=== PATIENT | female | born 1980 | race African-American/Black ===

== ENCOUNTER 2017-04-19 08:26 | Emergency (ER) | payer MEDICARE, OTHER ==
[~2017-04-19] VITALS: Wt 81.0 kg
[~2017-04-19 08:26] MED LIST: iron PO; klonopin PO
--- NOTE | 2017-04-19 09:16 | ERD ---
ER Documentation Chief Complaint Date/Time DATE: 04/19/17 TIME: 09:14 Chief Complaint COUGH X 1 MONTH WITH SOB HPI 36-year-old female with history of asthma comes emergency department with a cough 1 month. Patient states that she was previously treated with amoxicillin for her cough as well as sinus congestion. She has lower right- sided sinus congestion, with a productive cough with yellow colored sputum. She also reports she has had chest pain on the left anterior side, for approximately 1-1/2 weeks now. She has not had any fevers or chills. She has not had any recent travel, trauma, does not take any oral contraceptive pills, denies leg pain or leg swelling. ROS All systems reviewed and are negative except as per history of present illness. Medications Home Meds Active Scripts Fluconazole* (Diflucan*) 150 Mg Tablet, 150 MG PO ONCE, #1 TAB Prov:AKANKSHA MEYER PA-C 04/19/17 Ibuprofen* (Motrin*) 600 Mg Tab, 600 MG PO Q6, #30 TAB Prov:AKANKSHA MEYER PA-C 04/19/17 Guaifenesin/Codeine Phosphate (CHERATUSSIN AC SYRUP) 118 Ml Liquid, 5 ML PO Q4H Y for COUGH, #118 ML Prov:AKANKSHA MEYER PA-C 04/19/17 Azithromycin* (Zithromax*) 250 Mg Tablet, 250 MG PO .ZPACK DIRECTED, #6 TAB TAKE 500 MG (2 TABS) THE FIRST DAY THEN 250 MG (1 TAB) DAYS 2-5 Prov:AKANKSHA MEYER PA-C 04/19/17 Reported Medications [iron] No Conflict Check, PO 12/20/14 [klonopin] No Conflict Check, PO 12/20/14 Allergies Allergies: Coded Allergies: No Known Drug Allergy (Verified Allergy, Unknown, 09/06/14) PMhx/Soc History of Surgery: Yes (pylonidal cyst, gall bladder ,c/section) Anesthesia Reaction: No Hx Neurological Disorder: No Hx Respiratory Disorders: No Hx Cardiac Disorders: No Hx Psychiatric Problems: Yes (bipolar) Hx Miscellaneous Medical Probl: Yes (anemia) Hx Alcohol Use: No Hx Substance Use: No Hx Tobacco Use: No Physical Exam Vitals Vital Signs Date Time Temp Pulse Resp B/P Pulse Ox O2 Delivery O2 Flow Rate FiO2 04/19/17 08:32 98.0 94 18 134/87 99 Physical Exam General: Well-developed, well-nourished. The patient appears in no acute distress. HEENT: Head is normocephalic, atraumatic. No scleral icterus. Pupils are equal , round, and reactive. Oral mucous membranes are moist. No pharyngeal erythema. Right ethmoid sinus tenderness palpation Neck: Supple. Nontender. Lungs: Clear to auscultation. Normal air movement. Reproducible left-sided chest pain with left shoulder movement. Heart: Regular rate and rhythm. S1 and S2 are normal. No murmurs, gallops, or rubs. Abdomen: Soft, nontender, nondistended. Bowel sounds are normoactive. Extremities: No clubbing or cyanosis. Normal pulses. Moving extremities x 4. No weakness. Neurologic: Alert and oriented 3. No focal deficits. Skin: Normal turgor. No rash or lesions. Results 24 hrs PERC Criteria Assessment: Age > 50: No HR > 100: No 02 < 95%: No H/o DVT/PE: No Recent trauma/surgery: No Hemoptysis: No Exogenous Estrogen: No Unilateral Leg swelling: No Pretest probability > 15%: No Less than 2% risk of PE. No further work up is necessary PROCEDURE: Chest radiograph series. CLINICAL INDICATION: Cough. Fever. TECHNIQUE: PA and lateral chest x-ray. COMPARISON: Chest radiograph 03/05/2015 FINDINGS: The cardiomediastinal silhouette is unremarkable. The lungs and costophrenic angles are clear. The osseous structures are unremarkable. IMPRESSION: 1. Unremarkable chest radiograph series. RPTAT: KK .Sanjiv Brown MD, Date Time Electronically viewed and signed by .Sanjiv Brown MD, on 2016 09:31 .B/ Procedures/MDM ED course: 12-lead EKG(interpreted by supervising physician): Dr. Cortes Rate/Rhythm: Normal Sinus Rhythm, rate of 73 QRS, ST, T-waves: No changes consistent w/ acute ischemia, no intervals, no dysrhythmias, no ectopy Impression: No evidence of ischemia or arrhythmia Patient had a chest x-ray. MDM: 36-year-old female comes in with a cough 1 month, congestion, patient likely presents with acute bronchitis. Chest x-ray was performed, that was normal, EKG shows normal sinus rhythm. She has reproducible tenderness in the chest when moving her shoulder likely indicating a musculoskeletal pain. I doubt acute coronary syndrome, pulmonary embolus or dissection. Departure Diagnosis: Primary Impression: URI, acute Condition: Good AKANKSHA MEYER PA-C April 19, 2017 09:16
--- NOTE | 2017-04-19 09:32 | RADRPT ---
PROCEDURE: Chest radiograph series. CLINICAL INDICATION: Cough. Fever. TECHNIQUE: PA and lateral chest x-ray. COMPARISON: Chest radiograph 03/05/2015 FINDINGS: The cardiomediastinal silhouette is unremarkable. The lungs and costophrenic angles are clear. The o sseous structures are unremarkable. IMPRESSION: 1. Unremarkable chest radiograph series. RPTAT: KK .Sanjiv Brown MD, MD Date Time Electronically viewed and signed by .Sanjiv Brown MD, on 04/19/2017 09:31 .B/
[2017-04-19] MEDS ORDERED: GUAI118L22 PO (09:54)
[2017-04-19] MEDS ORDERED: AZIT250T94 PO (09:54)
[2017-04-19] MEDS ORDERED: IBUP-1542 PO (09:54)
[2017-04-19] MEDS ORDERED: FLUC150T17 PO (10:14)
== END 2017-04-19 10:16 | disposition home or self-care (01) ==
LOC: FTE 08:26
DX: J06.9 Acute upper respiratory infection, unspecified (principal); R07.9 Chest pain, unspecified
CPT/HCPCS: 71020; 93005

== ENCOUNTER 2017-08-11 07:05 | Emergency (ER) | payer MEDICARE, OTHER ==
[~2017-08-11] VITALS: Wt 97.0 kg
[~2017-08-11 07:05] MED LIST changes: +AZIT250T94 PO; +FLUC150T17 PO; +GUAI118L22 PO; +IBUP-1542 PO
[2017-08-11] MEDS ORDERED: AMOX1TAB10 PO (07:31)
[2017-08-11] MEDS ORDERED: PSEU120T51 PO (07:31)
[2017-08-11] MEDS ORDERED: OFLO5DRO7 LEFT EAR (07:31)
[2017-08-11] MEDS ORDERED: LORA10CA PO (07:31)
--- NOTE | 2017-08-11 07:34 | ERD ---
ER Documentation Chief Complaint Date/Time DATE: 08/11/17 TIME: 07:32 Chief Complaint CONGESTION, COUGH, FEVER, LEFT EAR PAIN X3 DAYS HPI 36-year-old female presents with cough, congestion, sore throat for 3 days, also presents with left ear pain currently being treated for otitis media with amoxicillin but reports waking up with left ear drainage. Patient reports that she went to an urgent care yesterday and was given a prescription of amoxicillin which she has taken 1 dose so far. She was told that she had a "bulging ear" and she states that this morning she woke up with yellow to greenish discharge on her pillow that came from her left ear. Has not had any fevers or chills chest pain or shortness of breath. ROS All systems reviewed and are negative except as per history of present illness. Medications Home Meds Active Scripts Loratadine* (Claritin*) 10 Mg Capsule, 10 MG PO DAILY, #30 CAP Prov:AKANKSHA MEYER PA-C 08/11/17 Pseudoephedrine Hcl (Sudafed 12 Hour) 120 Mg Tablet.sa, 120 MG PO BID, #6 Prov:AKANKSHA MEYER PA-C 08/11/17 Ofloxacin Otic (Ofloxacin Otic) 5 Ml Drops, 5 DROP LEFT EAR BID for 10 Days, #1 BOTTLE Prov:AKANKSHA MEYER PA-C 08/11/17 Amoxicillin/Potassium Clav (Amox-Clav 875-125 mg Tablet) 875-125 mg Tab, 1 TAB PO BID for 7 Days, #14 TAB Prov:AKANKSHA MEYER PA-C 08/11/17 Fluconazole* (Diflucan*) 150 Mg Tablet, 150 MG PO ONCE, #1 TAB Prov:AKANKSHA MEYER PA-C 04/19/17 Ibuprofen* (Motrin*) 600 Mg Tab, 600 MG PO Q6, #30 TAB Prov:AKANKSHA MEYER PA-C 04/19/17 Guaifenesin/Codeine Phosphate (CHERATUSSIN AC SYRUP) 118 Ml Liquid, 5 ML PO Q4H Y for COUGH, #118 ML Prov:AKANKSHA MEYER PA-C 04/19/17 Azithromycin* (Zithromax*) 250 Mg Tablet, 250 MG PO .ZPACK DIRECTED, #6 TAB TAKE 500 MG (2 TABS) THE FIRST DAY THEN 250 MG (1 TAB) DAYS 2-5 Prov:AKANKSHA MEYER PA-C 04/19/17 Reported Medications [iron] No Conflict Check, PO 12/20/14 [klonopin] No Conflict Check, PO 12/20/14 Allergies Allergies: Coded Allergies: No Known Drug Allergy (Verified Allergy, Unknown, 08/11/17) PMhx/Soc History of Surgery: Yes (pylonidal cyst, gall bladder ,c/section) Anesthesia Reaction: No Hx Neurological Disorder: No Hx Respiratory Disorders: No Hx Cardiac Disorders: No Hx Psychiatric Problems: Yes (bipolar) Hx Miscellaneous Medical Probl: Yes (anemia) Hx Alcohol Use: Yes (socially) Hx Substance Use: No Hx Tobacco Use: No Smoking Status: Never smoker Physical Exam Vitals Vital Signs Date Time Temp Pulse Resp B/P Pulse Ox O2 Delivery O2 Flow Rate FiO2 08/11/17 07:08 97.1 102 71 123/78 100 Physical Exam General: Well-developed, well-nourished. The patient appears in no acute distress. HEENT: Head is normocephalic, atraumatic. No scleral icterus. Right TM is normal, left TM is bulging, partially perforated, with discharge. Mastoids are nontender Neck: Supple. Nontender. Lungs: Clear to auscultation. Normal air movement. Heart: Regular rate and rhythm. S1 and S2 are normal. No murmurs, gallops, or rubs. Abdomen: Nondistended. Extremities: No clubbing or cyanosis. Moving extremities x 4. No weakness. Neurologic: Alert and oriented 3. No focal deficits. Normal speech and gait. Skin: Normal turgor. No rash or lesions. Procedures/MDM The patient is a 36-year-old femur who comes in with an acute upper respiratory infection, presumed viral, otitis media of the left ear with small perforation. The patient has a differential diagnosis of a viral upper respiratory infection , bacterial upper respiratory infection, bronchitis, pneumonia, pharyngitis, laryngitis, epiglottitis, croup, pneumonia. Patient has a normal pulmonary examination, clear breath sounds, normal pulse oximetry, with no corrective measures needed at this time. Fluids, rest, antipyretics were encouraged. Departure Diagnosis: Primary Impression: URI, acute Additional Impression: Otitis media, left Condition: Good Patient Instructions: Eardrum Rupture (Perforation), Uri, Viral, No Abx (Adult) AKANKSHA MEYER PA-C Aug 11, 2017 07:34
== END 2017-08-11 07:35 | disposition home or self-care (01) ==
LOC: FTE 07:05
DX: J06.9 Acute upper respiratory infection, unspecified (principal); H66.92 Otitis media, unspecified, left ear
CPT/HCPCS: 99283

== ENCOUNTER 2018-04-21 08:36 | Emergency (ER) | END 2018-04-21 13:22 | disposition home or self-care (01) ==

== ENCOUNTER 2018-08-31 08:47 | Emergency (ER) | END 2018-08-31 09:34 | disposition home or self-care (01) ==